=== PATIENT | female | born 1955 | race Caucasian/White ===

== ENCOUNTER 2020-08-19 22:06 | Observation (INO) ==
--- NOTE | 2020-08-19 22:19 | Emergency Department Note ---
Impression & Plan Atypical chest pain ED Provider Note NAME: CRISTY VIRGEN AGE: 64 SEX: F : 1955 ARRIVES VIA: Walk-In INFORMANT: Patient, ED PROVIDER(S): Darrell El MD Chief Complaint: Chest pain HPI: Patient does present with concern for central chest pain that she describes as sharp and nonradiating. The patient has stated it has been intermittent. The patient denies any true exertional symptoms or change with position. The patient is not take anything for it at home. No prior history of heart or lung disease. The patient is a non-smoker. No history of DVT or PE. Patient denies any recent travel surgeries or procedures. The patient denies infectious symptoms including cough fevers or chills. Patient states that she does have family history of heart attack in her father likely in his 70s. Patient denies any recent trauma heavy lifting twisting or turning. ROS: See HPI for pertinent positives and negatives. A total of 10 systems were reviewed and otherwise negative. Past medical history: See below Surgical history: See below Social history: See below Physical Exam: GENERAL: Wearing glasses. Fatigued in appearance. EYE EXAM: Normal conjunctiva. PERRL, no anisocoria and EOM's grossly intact w/o pain. NECK: Supple, no nuchal rigidity, no adenopathy, non-tender. No signs of meningismus. LUNGS: Clear to auscultation. Normal chest wall mechanics. HEART: NSR, no MRG. ABDOMEN: Abdomen soft, non-tender, normo-active bowel sounds, no masses, no rebound or guarding. BACK: No CVA TTP. SKIN: No rashes and no bruising. UPPER EXTREMITIES: Upper extremities are grossly normal. LOWER EXTREMITIES: Grossly normal, no edema. NEURO EXAM: A&O x3, cranial nerves II-XII grossly intact, normal speech, moves all 4 extremities on command w/o issue. Differential diagnoses: Cardiac ischemia, aortic dissection, pulmonary embolism, pneumothorax, pneumonia, pericarditis, myocarditis, esophageal rupture, GERD, cholecystitis, pancreatitis, musculoskeletal, as well as other pathologies. Course: Patient was seen and evaluated the bedside. Full history physical exam was performed. EKG interpreted by me Sinus tachycardia, rate 114, normal intervals, normal axis, slight depressions in the lateral leads. Imaging Studies: See below Cardiac monitoring: An order was placed for continuous cardiac monitoring. The monitor shows a rate of 98 with sinus rhythm. MDM: Patient did present with concern for chest pain. The patient has had intermittent chest pains. Patient did have blood work completed which shows a normal white count H&H and platelet count. The patient's kidney function is un remarkable. D-dimer not elevated. The patient's tachycardia did improve. Patient did have slight ST changes. Troponin undetectable. She does have family history of heart disease. Patient's father had a heart attack she believes in her 70s. The patient's lack of improvement in symptoms with ST changes and and history of heart disease I did order aspirin for the patient. Chest x-ray is clear. I did speak with the on-call hospitalist and the patient was admitted to the medicine service Dr. Cheung. Past Med/Surg History Medical History (Updated 08/20/20 @ 01:26 by Darrell El MD) GERD (gastroesophageal reflux disease) HTN (hypertension) with goal to be determined Hypothyroid Surgical History No pertinent past surgical history Family History (Updated 08/20/20 @ 01:26 by Darrell El MD) Father Coronary heart disease Social History Smoking Status: Never smoker Feels Safe at Home: Yes Allergies Allergies Allergy/AdvReac Type Severity Reaction Status Date / Time erythromycin base Allergy Intermediate RED ITCHY Verified 08/19/20 23:02 RASH Macrolide Antibiotics Allergy Intermediate RED ITCHY Verified 08/19/20 23:02 RASH codeine AdvReac Severe SEVERE Verified 08/19/20 23:02 VOMITING morphine AdvReac Severe SEVERE Verified 08/19/20 23:02 VOMITING Home Meds Home Medications Medication Instructions Recorded Confirmed amitriptyline 25 mg PO HS 08/19/20 08/19/20 atenolol-chlorthalidone 1 tab PO QAM 08/19/20 08/19/20 calcium carbonate [Calcium 600] 600 mg PO QAM 08/19/20 08/19/20 cholecalciferol (vitamin D3) 0 mcg PO DAILY 08/19/20 08/19/20 [Vitamin D3] famotidine 40 mg PO QAM 08/19/20 08/19/20 levothyroxine [Synthroid] 125 mcg PO DAILYBB 08/19/20 08/19/20 milk thistle 0 mg PO QAM 08/19/20 08/19/20 multivitamin 1 tab PO QAM 08/19/20 08/19/20 potassium chloride [Klor-Con M20] 20 meq PO QPM 08/19/20 08/19/20 pravastatin 80 mg PO HS 08/19/20 08/19/20 zolpidem 10 mg PO HS 08/19/20 08/19/20 Results & Data (ED) Vital Signs Vital Signs - 24 hr 08/19/20 22:11 08/19/20 22:34 08/19/20 23:30 Temperature 36.6 C Temperature Source Temporal Artery Scan Pulse Rate 129 H Pulse Rate [Right] 98 H Pulse Rhythm [Right] Regular Pulse Strength [Right] Normal Respiratory Rate 20 16 Respiratory Effort / Characteristics Non-Labored Spontaneous Respiratory Depth Shallow Normal Blood Pressure 161/95 H Blood Pressure [Right Arm] 153/92 H Blood Pressure Mean 117 Blood Pressure Mean [Right Arm] 112 Blood Pressure Position [Right Arm] Lying Pulse Oximetry 97 99 99 Oxygen Delivery Method Room Air Room Air Room Air Sepsis Recent Fever Within 48 Hours No Sepsis New/Unexplained Change in Mental Status No Sepsis Action Taken by Nursing No Action Required 08/20/20 00:50 Temperature Temperature Source Pulse Rate Pulse Rate [Right] 95 H Pulse Rhythm [Right] Regular Pulse Strength [Right] Normal Respiratory Rate 16 Respiratory Effort / Characteristics Non-Labored Spontaneous Respiratory Depth Normal Blood Pressure Blood Pressure [Right Arm] 139/62 Blood Pressure Mean Blood Pressure Mean [Right Arm] 87 Blood Pressure Position [Right Arm] Lying Pulse Oximetry 96 Oxygen Delivery Method Room Air Sepsis Recent Fever Within 48 Hours Sepsis New/Unexplained Change in Mental Status Sepsis Action Taken by Custodial Medications Current Medication List: was personally reviewed by me Laboratory Data Attestation: I reviewed the patient's lab results. Result diagrams: 08/19/20 22:30 08/19/20 22:30 Lab Results 08/19/20 08/19/20 08/19/20 Range/Units 22:30 22:30 22:36 WBC 8.27 (4.8-10.8) K/uL RBC 4.42 (4.2-5.4) M/uL Hgb 14.2 (12.0-16.0) g/dL Hct 40.5 (37-47) % MCV 91.6 (80-100) fL MCH 32.1 (25-34) pg MCHC 35.1 (32-36) g/dL RDW Std Deviation 43.6 (36.4-46.3) fL RDW Coeff of [place] 13.0 (11.5-14.5) % Plt Count 326 (130-400) K/uL MPV 9.0 (7.4-10.4) fL Immature Gran % (Auto) 0.1 % Neut % (Auto) 57.4 % Lymph % (Auto) 31.6 % [place] % (Auto) 7.7 % Eos % (Auto) 2.5 % Baso % (Auto) 0.7 % Neut # (Auto) 4.74 (1.4-6.5) K/uL Lymph # (Auto) 2.61 (1.2-3.4) K/uL [place] # (Auto) 0.64 H (0.11-0.59) K/uL Eos # (Auto) 0.21 (0-0.5) K/uL Baso # (Auto) 0.06 (0-0.2) K/uL Immature Gran # (Auto) 0.01 (0.00-0.02) K/uL PT 10.0 (9.0-12.0) Seconds INR 1.0 (0.9-1.1) APTT 24.2 (21.0-31.0) Seconds PTT Ratio 0.9 D-Dimer 400 (0-500) ug/L FEU Sodium 138 (136-145) mmol/L Potassium 3.3 L (3.5-5.1) mmol/L Chloride 105 (98-107) mmol/L Carbon Dioxide 26 (21-32) mmol/L Anion Gap 7.0 (3-11) BUN 9 (7-18) mg/dl Creatinine 0.67 (0.6-1.2) mg/dl Est Cr Clr Drug Dosing 89.5 ml/min Est GFR ( Amer) 109.2 Est GFR (Non-Af Amer) 94.2 BUN/Creatinine Ratio 12.8 (10-20) Glucose 100 H (70-99) mg/dl Calcium 9.8 (8.5-10.1) mg/dl Total Bilirubin 0.9 (0.2-1) mg/dl AST 34 (15-37) U/L ALT 58 (12-78) U/L Alkaline Phosphatase 78 (45-117) U/L Troponin I < 0.015 (0-0.045) ng/ml Total Protein 8.1 (6.4-8.2) gm/dl Albumin 4.0 (3.4-5.0) gm/dl Globulin 4.1 H (2.5-4.0) gm/dl Albumin/Globulin Ratio 1.0 (0.9-2) Lipase 93 (73-393) U/L COVID-19 Eval Order SARS-CoV-2 (PCR) (Negative) Influenza Type A (PCR) (Neg) Influenza Type B (PCR) (Neg) RSV (RT-PCR) (Neg) 08/20/20 08/20/20 Range/Units 00:30 00:30 WBC (4.8-10.8) K/uL RBC (4.2-5.4) M/uL Hgb (12.0-16.0) g/dL Hct (37-47) % MCV (80-100) fL MCH (25-34) pg MCHC (32-36) g/dL RDW Std Deviation (36.4-46.3) fL RDW Coeff of [place] (11.5-14.5) % Plt Count (130-400) K/uL MPV (7.4-10.4) fL Immature Gran % (Auto) % Neut % (Auto) % Lymph % (Auto) % [place] % (Auto) % Eos % (Auto) % Baso % (Auto) % Neut # (Auto) (1.4-6.5) K/uL Lymph # (Auto) (1.2-3.4) K/uL [place] # (Auto) (0.11-0.59) K/uL Eos # (Auto) (0-0.5) K/uL Baso # (Auto) (0-0.2) K/uL Immature Gran # (Auto) (0.00-0.02) K/uL PT (9.0-12.0) Seconds INR (0.9-1.1) APTT (21.0-31.0) Seconds PTT Ratio D-Dimer (0-500) ug/L FEU Sodium (136-145) mmol/L Potassium (3.5-5.1) mmol/L Chloride (98-107) mmol/L Carbon Dioxide (21-32) mmol/L Anion Gap (3-11) BUN (7-18) mg/dl Creatinine (0.6-1.2) mg/dl Est Cr Clr Drug Dosing ml/min Est GFR ( Amer) Est GFR (Non-Af Amer) BUN/Creatinine Ratio (10-20) Glucose (70-99) mg/dl Calcium (8.5-10.1) mg/dl Total Bilirubin (0.2-1) mg/dl AST (15-37) U/L ALT (12-78) U/L Alkaline Phosphatase (45-117) U/L Troponin I (0-0.045) ng/ml Total Protein (6.4-8.2) gm/dl Albumin (3.4-5.0) gm/dl Globulin (2.5-4.0) gm/dl Albumin/Globulin Ratio (0.9-2) Lipase (73-393) U/L COVID-19 Eval Order CovFluRsv at [facility] SARS-CoV-2 (PCR) NEGATIVE (Negative) Influenza Type A (PCR) Negative (Neg) Influenza Type B (PCR) Negative (Neg) RSV (RT-PCR) Negative (Neg) Administered Medications Discontinued Medications Al Hydrox/Mg Hydrox/Simethicone (Gi Cocktail Ed Use) 1 dose PO ONE ONE Stop: 08/19/20 23:58 Last Admin: 08/20/20 00:01 Dose: 1 dose Documented by: [id number] Aspirin (Aspirin Chew 324 Mg) 324 mg PO NOW STA Stop: 08/20/20 00:25 Last Admin: 08/20/20 00:31 Dose: 324 mg Documented by: [id number] Famotidine (Famotidine 20mg/5ml Iv Push) 20 mg IV ONE STA Stop: 08/19/20 23:58 Last Admin: 08/20/20 00:01 Dose: 20 mg Documented by: [id number] Fentanyl Citrate (Fentanyl Citrate 100 Mcg/2 Ml Vial) 50 mcg IV NOW STA Stop: 08/19/20 22:32 Last Admin: 08/19/20 22:38 Dose: 50 mcg Documented by: [id number] Sodium Chloride (Nss 1000ml) 1,000 mls @ 999 mls/hr IV .Q1H1M STA Stop: 08/19/20 23:30 Last Infusion: 08/19/20 23:49 Dose: 0 mls/hr Documented by: [id number] Admin: 08/19/20 22:37 Dose: 999 mls/hr Documented by: [id number] Sodium Chloride (Nss 1000ml) 500 mls @ 999 mls/hr IV .Q31M ONE Stop: 08/20/20 00:27 Last Infusion: 08/20/20 00:36 Dose: 0 mls/hr Documented by: [id number] Admin: 08/20/20 00:01 Dose: 999 mls/hr Documented by: [id number] Ketorolac Tromethamine (Ketorolac 30 Mg/Ml Vial) 30 mg IV NOW STA Stop: 08/19/20 22:31 Last Admin: 08/19/20 22:38 Dose: 30 mg Documented by: [id number] Nitroglycerin (Nitroglycerin Sl 0.4 Mg/Tab Tab) 0.4 mg SL NOW STA Stop: 08/20/20 00:25 Last Admin: 08/20/20 00:31 Dose: 0.4 mg Documented by: [id number] Ondansetron HCl (Ondansetron Inj 2 Mg/Ml 2 Ml Vial) 4 mg IV NOW STA Stop: 08/19/20 23:58 Last Admin: 08/20/20 00:02 Dose: 4 mg Documented by: [id number] Discharge Plan Visit Data Chief Complaint: Chest Pain Stated Complaint: CHEST PAINS ED Provider: Darrell El Discharge Problem: Atypical chest pain Forms Stand Alone Forms: [facility] Prescriptions Prescriptions: No Action multivitamin Tablet 1 tab PO QAM RF: 0 famotidine 40 mg tablet 40 mg PO QAM RF: 0 atenolol-chlorthalidone 50-25 mg tablet 1 tab PO QAM RF: 0 milk thistle 150 mg Capsule 0 mg PO QAM RF: 0 calcium carbonate [Calcium 600] 600 mg calcium (1,500 mg) Tablet 600 mg PO QAM RF: 0 potassium chloride [Klor-Con M20] 20 mEq tablet,ER particles/crystals 20 meq PO QPM RF: 0 pravastatin 80 mg tablet 80 mg PO HS RF: 0 amitriptyline 25 mg tablet 25 mg PO HS RF: 0 levothyroxine [Synthroid] 125 mcg tablet 125 mcg PO DAILYBB RF: 0 zolpidem 10 mg tablet 10 mg PO HS RF: 0 cholecalciferol (vitamin D3) [Vitamin D3] 25 mcg (1,000 unit) Capsule 0 mcg PO DAILY RF: 0
[2020-08-19] MEDS ORDERED: SODIUM CHLORIDE 0.9% 1000ML 1,000 ML IV STA (22:30)
[2020-08-19] MEDS ORDERED: KETOROLAC 30 MG/ML VIAL IV STA (22:30)
[2020-08-19] MEDS ORDERED: fentaNYL citrate 100 MCG/2 ML VIAL IV STA (22:31)
[2020-08-19 22:46] LABS: Basophils # (auto) 0.06 K/uL (0-0.2); Basophils % (auto) 0.7 %; Eosinophils # (auto) 0.21 K/uL (0-0.5); Eosinophils % (auto) 2.5 %; Hematocrit (blood only) 40.5 % (37-47); Hemoglobin 14.2 g/dL (12.0-16.0); Immature Granulocytes # (auto) 0.01 K/uL (0.00-0.02); Immature Granulocytes % (auto) 0.1 %; Lymphocytes # (auto) 2.61 K/uL (1.2-3.4); Lymphocytes % (auto) 31.6 %; Mean Corpuscular Hemoglobin 32.1 pg (25-34); Mean Corpuscular Hgb Conc 35.1 g/dL (32-36); Mean Corpuscular Volume 91.6 fL (80-100); Monocytes # (auto) 0.64 K/uL (0.11-0.59); Monocytes % (auto) 7.7 %; Neutrophils # (auto) 4.74 K/uL (1.4-6.5); Neutrophils % (auto) 57.4 %; Platelet Count 326 K/uL (130-400); RDW Standard Deviation 43.6 fL (36.4-46.3); Red Blood Count 4.42 M/uL (4.2-5.4); White Blood Count 8.27 K/uL (4.8-10.8)
[2020-08-19 22:55] LABS: Aspartate Aminotransferase 34 U/L (15-37); BUN Creatinine Ratio 12.8 (10-20); Blood Urea Nitrogen 9 mg/dl (7-18); Calcium 9.8 mg/dl (8.5-10.1); Carbon Dioxide 26 mmol/L (21-32); Chloride 105 mmol/L (98-107); Creatinine Clr Calc Pharmacy 89.5 ml/min; Est GFR (African American) 109.2; Est GFR (Non-African American) 94.2; Glucose 100 mg/dl (70-99); Lipase 93 U/L (73-393); Potassium 3.3 mmol/L (3.5-5.1); Sodium 138 mmol/L (136-145)
[2020-08-19 23:00] LABS: Alanine Aminotransferase 58 U/L (12-78); Alkaline Phosphatase 78 U/L (45-117); Bilirubin,Total 0.9 mg/dl (0.2-1); Globulin 4.1 gm/dl (2.5-4.0); Total Protein 8.1 gm/dl (6.4-8.2); Troponin I < 0.015 ng/ml (0-0.045)
[2020-08-19 23:52] LABS: D Dimer 400 ug/L FEU (0-500); Partial Thromboplastin Ratio 0.9; Partial Thromboplastin Time 24.2 Seconds (21.0-31.0)
[2020-08-19] MEDS ORDERED: SODIUM CHLORIDE 0.9% 1000ML 500 ML IV ONE (23:57)
[2020-08-19] MEDS ORDERED: ONDANSETRON INJ 2 MG/ML 2 ML VIAL IV STA (23:57)
[2020-08-19] MEDS ORDERED: FAMOTIDINE 20MG/5ML IV PUSH IV STA (23:57)
[2020-08-19] MEDS ORDERED: GI COCKTAIL ED USE PO ONE (23:57)
[2020-08-20] MEDS ORDERED: NITROGLYCERIN SL 0.4 MG/TAB TAB SL STA (00:24)
[2020-08-20] MEDS ORDERED: ASPIRIN CHEW 324 MG PO STA (00:24)
[2020-08-20 01:19] LABS: Influenza A virus by PCR Negative (Neg); Influenza B virus by PCR Negative (Neg); RSV by PCR Negative (Neg); SARS CoV2 RNA(COVID-19) InHosp NEGATIVE (Negative)
[2020-08-20] MEDS ORDERED: POTASSIUM CHLORIDE CRTAB 20 MEQ TABCR PO STA ×2 (04:42→13:08)
[2020-08-20] MEDS ORDERED: ONDANSETRON INJ 2 MG/ML 2 ML VIAL IV PRN (04:42)
[2020-08-20] MEDS ORDERED: NITROGLYCERIN SL 0.4 MG/TAB TAB SL PRN (04:42)
[2020-08-20] MEDS ORDERED: ACETAMINOPHEN 325 MG TAB PO PRN (04:42)
--- NOTE | 2020-08-20 05:09 | History and Physical Report ---
DATE OF ADMISSION: 08/20/2020 CHIEF COMPLAINT: Chest pain. HISTORY OF PRESENT ILLNESS: This is a 64-year-old female with past medical history significant for hyperlipidemia, hypothyroidism, prediabetes, hypertension, SCHRADER, diverticulosis of colon, irritable bowel syndrome, anemia, family history of dementia, history of colon polyps who lives with her and grandkids comes with chest pain. The patient says she is having chest pain in the middle of the chest last 2 days on and off, burning and sharp kind of pain about 4/10 in severity, no radiation, also some dizziness. No nausea. When the pain is severe, she gets short of breath. No cough, no fever, no chills, has some headache, no blurred vision, no earache, no runny nose, no sore throat. Appetite is down last few days. No dysphagia, no abdominal pain. Normal bowel and bladder movements. Pain is not associated with any activity. The patient received fentanyl in the ER and nitroglycerin and Toradol and that helped with the pain. Currently resting comfortably and hemodynamically stable. ALLERGIES: ERYTHROMYCIN BASE, MACROLIDE ANTIBIOTICS, CODEINE, MORPHINE. PAST MEDICAL HISTORY: As mentioned above. PAST SURGICAL HISTORY: Colonoscopy with biopsy, ovarian cyst drained, knee arthroscopy, vaginal hysterectomy, appendectomy. MEDICATIONS: The patient is on amitriptyline 25 mg p.o. at bedtime, atenolol/chlorthalidone 50/25 mg p.o. daily, calcium carbonate 600 mg p.o. a.m., vitamin D, famotidine 40 mg p.o. a.m., levothyroxine 125 mcg p.o. daily, milk thistle daily, multivitamin daily, potassium chloride 20 mEq p.o. daily, pravastatin 80 mg p.o. at bedtime, zolpidem 10 mg p.o. at bedtime. FAMILY HISTORY: Significant for brother has asthma. Mother has hyperlipidemia, hypertension, diabetes. Daughter has migraine. SOCIAL HISTORY: . No smoking, alcohol rarely. No drug use. REVIEW OF SYMPTOMS: As per HPI. Rest of the review of systems negative. PHYSICAL EXAMINATION: GENERAL: The patient is of moderate build, not in acute distress. VITAL SIGNS: Temperature 36.6, pulse 81, respiratory rate 16, blood pressure 137/87, oxygen 98% on room air. HEENT: Pupils equal, round, reactive to light. Oral mucosa moist. NECK: No JVD, no neck masses. CARDIOVASCULAR: S1, S2 heard, regular rate and rhythm, no murmur, no gallop. RESPIRATORY SYSTEM: Normal AP diameter. No accessory muscle use. No wheezing, no crackles. ABDOMEN: Soft, bowel sounds present, nontender. No distention. CENTRAL NERVOUS SYSTEM: Cranial nerves II-XII grossly intact, nonfocal. EXTREMITIES: No edema, no erythema. LABORATORY DATA: WBC 8.8, hemoglobin 14.2, hematocrit 40.5, platelets 326. PT 10, INR 1, APTT 24.2. D-dimer 400. Sodium 138, potassium 3.3, chloride 105, bicarbonate 26, BUN 9, creatinine 0.6, serum glucose 100, calcium 9.8, total bilirubin 0.9, AST 34, ALT 58, alkaline phosphatase 70. Troponin I less than 0.015. Lipase 96. SARS-CoV-2 PCR negative. Influenza A and B PCR negative, RSV PCR negative. IMAGING: Chest x-ray, no acute findings. EKG: Sinus tachycardia, rate of 114. Left ventricular hypertrophy with repolarization abnormality, nonspecific T-wave abnormalities seen. ASSESSMENT AND PLAN: This is a 64-year-old female who presents with chest pain. 1. Chest pain, rule out acute coronary syndrome. EKG, no acute findings. Troponins negative, follow serial enzymes, echocardiogram. We will keep her n.p.o. Consult cardiology in the a.m. 2. Hypokalemia. We will replace. 3. History of hypertension. Continue atenolol/chlorthalidone with potassium supplements. We will monitor the blood pressure. 4. Hyperlipidemia. Continue statin. 5. Hypothyroidism. Continue Synthroid. 6. Gastroesophageal reflux disease. Continue famotidine. 7. Prediabetes. We will follow HbA1c levels, currently n.p.o. 7. Deep venous thrombosis prophylaxis, sequential compression devices. DISPOSITION: Observe in med tele. Expect to discharge home and follow with family doctor.
[2020-08-20 05:39] LABS: Basophils # (auto) 0.06 K/uL (0-0.2); Basophils % (auto) 0.9 %; Eosinophils # (auto) 0.37 K/uL (0-0.5); Eosinophils % (auto) 5.7 %; Hematocrit (blood only) 36.9 % (37-47); Hemoglobin 12.6 g/dL (12.0-16.0); Lymphocytes # (auto) 2.37 K/uL (1.2-3.4); Lymphocytes % (auto) 36.2 %; Mean Corpuscular Hemoglobin 31.9 pg (25-34); Mean Corpuscular Hgb Conc 34.1 g/dL (32-36); Mean Corpuscular Volume 93.4 fL (80-100); Mean Platelet Volume 8.8 fL (7.4-10.4); Monocytes # (auto) 0.62 K/uL (0.11-0.59); Monocytes % (auto) 9.5 %; Neutrophils # (auto) 3.12 K/uL (1.4-6.5); Neutrophils % (auto) 47.7 %; Platelet Count 276 K/uL (130-400); RDW Standard Deviation 44.4 fL (36.4-46.3); Red Blood Count 3.95 M/uL (4.2-5.4); White Blood Count 6.54 K/uL (4.8-10.8)
[2020-08-20 06:06] LABS: BUN Creatinine Ratio 15.9 (10-20); Blood Urea Nitrogen 9 mg/dl (7-18); Calcium 8.3 mg/dl (8.5-10.1); Carbon Dioxide 27 mmol/L (21-32); Chloride 112 mmol/L (98-107); Creatinine Clr Calc Pharmacy 100.9 ml/min; Est GFR (African American) 113.9; Est GFR (Non-African American) 98.2; Glucose 86 mg/dl (70-99); Magnesium 2.1 mg/dl (1.8-2.4); Potassium 3.5 mmol/L (3.5-5.1); Sodium 143 mmol/L (136-145)
[2020-08-20 06:07] LABS: Troponin I < 0.015 ng/ml (0-0.045)
[2020-08-20] MEDS ORDERED: LEVOTHYROXINE SODIUM 125 MCG TABLET PO SCH (06:30)
--- NOTE | 2020-08-20 07:02 | XRay Report ---
XR chest 1V portable CLINICAL HISTORY: Atypical chest pain COMPARISON STUDY: No previous studies for comparison. FINDINGS: The cardiac and mediastinal contours are normal. There is no evidence of focal pulmonary co nsolidation. There is no evidence of failure. No pleural effusions are visualized.[ IMPRESSION: No active disease in the chest. ACT 112: Negative or not required by law. Electronically signed by: Sagar Norman M.D. 08/20/2020 7:00 AM
[2020-08-20 07:28] LABS: Estimated Average Glucose 114 mg/dl; Hemoglobin A1C 5.6 % (4.5-5.6)
[2020-08-20 08:49] LABS: Chol HDL Ratio 2; Cholesterol 156 mg/dl (0-200); HDL Cholesterol 65 mg/dl; LDL Cholesterol Calculated 75 mg/dl; Triglycerides 82 mg/dl (0-150); VLDL Cholesterol 16 mg/dl
[2020-08-20] MEDS ORDERED: CALCIUM 600MG + VIT D 400 IU TAB PO SCH (09:00)
[2020-08-20] MEDS ORDERED: CHLORTHALIDONE 25 MG TAB PO SCH (09:00)
[2020-08-20] MEDS ORDERED: ATENOLOL 50 MG TABLET PO SCH (09:00)
[2020-08-20] MEDS ORDERED: MILK THISTLE 150 MG PO SCH (09:00)
[2020-08-20] MEDS ORDERED: FAMOTIDINE 40 MG TABLET PO SCH (09:00)
[2020-08-20] MEDS ORDERED: MULTIVITAMIN TAB PO SCH (09:00)
[2020-08-20] MEDS ORDERED: CHOLECALCIFEROL 1,000 UNITS 25 MCG TAB PO SCH ×2 (09:00)
--- NOTE | 2020-08-20 09:58 | Cardiology Consultation ---
Date of Consultation August 20, 2020 Assessment & Plan (1) Atypical chest pain: 64-year-old female presents with intermittent chest discomfort which is both pleuritic and somewhat positional. D-dimer negative. No evidence of acute coronary syndrome. Preliminary review of bedside 2D transthoracic echocardiogram without evidence of pericardial effusion. I have ordered a CRP due to the pleuritic nature of her discomfort regarding an underlying inflammatory process. She is currently pain-free. Recommend exercise stress echo for further stratification. (2) HTN (hypertension): Blood pressure controlled. Continue home medications. (3) Dyslipidemia: Continue statin therapy. (4) Hypokalemia: Secondary to calcium sparing diuretic therapy. Replace as indicated. History of Present Illness Reason for Consultation: chest pain Requesting Physician: Dr. Cheung Attending Physician: Prashanth Bach MD History of Present Illness 64-year-old female presented emergency department with chest discomfort. History of dyslipidemia, hypertension, Goldberg, hypothyroidism and irritable bowel syndrome. Notes significant stress in her home life involving her granddaughter whom she cares for. Patient developed chest discomfort on Tuesday. Described a sharp discomfort as well as intermittent tightness at rest. Discomfort somewhat positional and exacerbated by turning to her right. Symptoms generally last 15 minutes in duration. No associated shortness of breath. When she experienced sharp discomfort, the pain "took my breath away". No orthopnea, PND, or lower extremity edema. Denies palpitations, lightheadedness, dizziness, syncope, or near syncope. Discomfort intermittent over the past 48 hours. Currently pain- free. In the ER her ECG demonstrates sinus tachycardia with nonspecific ST abnormality. Cardiac enzymes are undetectable x3 sets. Telemetry reveals sinus rhythm with occasional premature ventricular complexes. Preliminary review of bedside 2D transthoracic echocardiogram reveals normal wall motion without pericardial effusion. No significant valvular pathology. Allergies Allergy/AdvReac Type Severity Reaction Status Date / Time erythromycin base Allergy Intermediate RED ITCHY Verified 08/19/20 23:02 RASH Macrolide Antibiotics Allergy Intermediate RED ITCHY Verified 08/19/20 23:02 RASH codeine AdvReac Severe SEVERE Verified 08/19/20 23:02 VOMITING morphine AdvReac Severe SEVERE Verified 08/19/20 23:02 VOMITING Home Medications Medication Instructions Recorded Confirmed Type amitriptyline 25 mg PO HS 08/19/20 08/19/20 History atenolol-chlorthalidone 1 tab PO QAM 08/19/20 08/19/20 History calcium carbonate [Calcium 600] 600 mg PO QAM 08/19/20 08/19/20 History cholecalciferol (vitamin D3) 0 mcg PO DAILY 08/19/20 08/19/20 History [Vitamin D3] famotidine 40 mg PO QAM 08/19/20 08/19/20 History levothyroxine [Synthroid] 125 mcg PO DAILYBB 08/19/20 08/19/20 History milk thistle 0 mg PO QAM 08/19/20 08/19/20 History multivitamin 1 tab PO QAM 08/19/20 08/19/20 History potassium chloride [Klor-Con M20] 20 meq PO QPM 08/19/20 08/19/20 History pravastatin 80 mg PO HS 08/19/20 08/19/20 History zolpidem 10 mg PO HS 08/19/20 08/19/20 History Patient History Medical History GERD (gastroesophageal reflux disease) HTN (hypertension) with goal to be determined Hypothyroid Surgical History No pertinent past surgical history Family History Father Coronary heart disease Social History Smoking Status: Never smoker Hx Alcohol Use: Yes Alcohol type: other Hx Substance Use: No Preferred Language: [place] Communication Ability: Effective Beliefs That Will Affect Care: None Current Living Situation: Spouse Other Information That Helps Us Care for You: No Feels Safe at Home: Yes Safety Concerns: Feels Safe At This Time Assistive Devices: None Review of Systems Review of Systems: All systems reviewed & are unremarkable except as noted in Subjective Physical Exam Constitutional: well developed and well nourished; no acute distress Respiratory: normal respiratory effort; no respiratory distress, no labored breathing and no retractions Auscultation: lungs clear to auscultation bilaterally; breath sounds present, no diminished lung sounds, no crackles, no rales, no rhonchi and no wheezes Cardiovascular: Rate/Rhythm: regular rate and regular rhythm Heart Sounds: normal S1 and normal S2; no gallop, no murmur and no cardiac rub Palpation: normal PMI Vessels: radial pulses present; no JVD and no carotid bruit Extremities: no edema Gastrointestinal (Abdomen): Inspection/Auscultation: abdomen normal to inspection and normal bowel sounds; abdomen not distended Percussion/Palpation: abdomen soft; abdomen nontender, no guarding and abdomen not rigid Neurologic: moves all extremities; no focal motor deficits Motor/Sensory: no tremor Psychiatric: Orientation: alert and oriented x 3 Affect: + anxious affect Results & Data ([facility]) Vital Signs (Past 12 Hours) Vital Signs Temp Pulse Pulse Resp BP BP Pulse Ox 08/20/20 08:23 36.6 C 77 18 111/71 96 08/20/20 07:42 70 08/20/20 06:05 73 08/20/20 04:44 36.4 C L 78 18 147/90 H 96 08/20/20 03:31 90 16 136/82 98 08/20/20 02:23 81 16 137/87 98 08/20/20 00:50 95 H 16 139/62 96 08/19/20 23:30 98 H 16 153/92 H 99 08/19/20 22:34 99 08/19/20 22:11 36.6 C 129 H 20 161/95 H 97 (1) HTN (hypertension) Hypertension type: essential hypertension Qualified Code(s): I10 - Essential (primary) hypertension
[2020-08-20 10:16] LABS: C Reactive Protein 0.55 mg/dl (0-0.29); Troponin I < 0.015 ng/ml (0-0.045)
--- NOTE | 2020-08-20 13:09 | Hospitalist Progress Note ---
Date of Service August 20, 2020 Assessment & Plan (1) Atypical chest pain: Presented with chest pain off and on without exertion and without any significant associated symptoms No significant family history of heart disease and has not had any chest pain before Initial troponins and EKG are unremarkable Appreciate cardiology input and recommendation Status post negative exercise stress echocardiograph Likely to be discharged this afternoon (2) HTN (hypertension): Controlled on medication (3) Dyslipidemia: Lipids profile are unremarkable Continue statin (4) GERD (gastroesophageal reflux disease): Continue H1 [place] (5) Hypothyroid: Replacement (6) Hypokalemia: Replaced and corrected Will be discharged this afternoon Admission and Anticipated Discharge Date Admission Date: August 20, 2020 Subjective 08/20/2020 The patient was seen and examined in medical telemetry unit She is very anxious and is admitted with chest pain off and on for the last 3 days without any other associated symptoms She is a status post negative stress echo Denies any chest pain since admission Review of Systems Review of Systems: All systems reviewed and are unremarkable except as noted below Cardiovascular: no chest pain, no palpitations and no edema Psychiatric: + anxiety Physical Exam Physical Exam: Lying in bed comfortably Constitutional: well developed, well nourished and + obese; not ill appearing Eyes: PERRL, conjunctivae normal, anicteric sclerae ENMT: external ear and nose normal, oropharynx normal Neck: trachea midline, no thyromegaly Respiratory: no respiratory distress Auscultation: lungs clear to auscultation bilaterally Cardiovascular: Rate/Rhythm: regular rate and regular rhythm Heart Sounds: no murmur Extremities: no edema Gastrointestinal (Abdomen): Inspection/Auscultation: normal bowel sounds; abdomen not distended Percussion/Palpation: abdomen soft; abdomen nontender Musculoskeletal: No acute arthritis in any joint Neurologic: Alert, awake and oriented x3. No focal sensory and motor deficit appreciated Psychiatric: A+Ox3, euthymic affect Mood: + anxious mood Lymphatic: no cervical or axillary lymphadenopathy Results & Data Results & Data ([facility]) Vital Signs (Past 12 Hours) Vital Signs Temp Pulse Pulse Resp BP Pulse Ox 08/20/20 08:23 36.6 C 77 18 111/71 96 08/20/20 07:42 70 08/20/20 06:05 73 08/20/20 04:44 36.4 C L 78 18 147/90 H 96 08/20/20 03:31 90 16 136/82 98 08/20/20 02:23 81 16 137/87 98 Laboratory Results Short CBC 08/19/20 08/20/20 Range/Units 22:30 05:28 WBC 8.27 6.54 (4.8-10.8) K/uL Hgb 14.2 12.6 (12.0-16.0) g/dL Hct 40.5 36.9 L (37-47) % Plt Count 326 276 (130-400) K/uL BMP 08/19/20 08/20/20 22:30 05:28 Sodium 138 143 Potassium 3.3 L 3.5 Chloride 105 112 H Carbon Dioxide 26 27 BUN 9 9 Creatinine 0.67 0.59 L Glucose 100 H 86 Calcium 9.8 8.3 L D Cardiac Enzymes 08/19/20 08/20/20 08/20/20 Range/Units 22:30 05:28 09:36 Troponin I < 0.015 < 0.015 < 0.015 (0-0.045) ng/ml Liver Function 08/19/20 Range/Units 22:30 Total Bilirubin 0.9 (0.2-1) mg/dl AST 34 (15-37) U/L ALT 58 (12-78) U/L Alkaline Phosphatase 78 (45-117) U/L Albumin 4.0 (3.4-5.0) gm/dl Medications Administered Current Inpatient Medications Acetaminophen (Acetaminophen 325 Mg Tab) 650 mg PO Q4H PRN PRN Reason: Pain or Fever Stop: 09/19/20 04:41 Amitriptyline HCl (Amitriptyline Hcl 25 Mg Tab) 25 mg PO [facility] Stop: 09/19/20 20:59 Atenolol (A[facility]ol 50 Mg Tablet) [facility] [place] Stop: 09/19/20 08:59 Last Admin: 08/20/20 08:26 Dose: 50 mg Documented by: Chlorthalidone (Chlorthalidone 25 Mg Tab) [facility] [place] Stop: 09/19/20 08:59 Last Admin: 08/20/20 08:25 Dose: 25 mg Documented by: Famotidine (Famotidine 40 Mg Tablet) [facility] [place] Stop: 09/19/20 08:59 Last Admin: 08/20/20 08:25 Dose: 40 mg Documented by: Levothyroxine Sodium (Levothyroxine Sodium 125 Mcg Tablet) 125 mcg PO DAILYBB [facility] Stop: 09/19/20 06:29 Last Admin: 08/20/20 06:02 Dose: 125 mcg Documented by: Multivitamins (Multivitamin Tab) 1 tab PO QAM [facility] Stop: 09/19/20 08:59 Last Admin: 08/20/20 08:25 Dose: 1 tab Documented by: Multivitamins/Minerals (Calcium 600mg + Vit D 400 Iu Tab) 1 tab PO QAM [facility] Stop: 09/19/20 08:59 Last Admin: 08/20/20 08:25 Dose: 1 tab Documented by: Nitroglycerin (Nitroglycerin Sl 0.4 Mg/Tab Tab) 0.4 mg SL UD PRN PRN Reason: Chest Pain Stop: 09/19/20 04:41 Ondansetron HCl (Ondansetron Inj 2 Mg/Ml 2 Ml Vial) 4 mg IV Q6H PRN PRN Reason: Nausea Stop: 09/19/20 04:41 Potassium Chloride (Potassium Chloride Crtab 20 Meq Tabcr) 20 meq PO QPM [facility] Stop: 09/19/20 20:59 Pravastatin Sodium (Pravastatin Sod 40 Mg Tab) 80 mg PO HS [facility] Stop: 09/19/20 20:59 Vitamin D (Cholecalciferol 1,000 Units 25 Mcg Tab) 1,000 units PO DAILY [facility] Stop: 09/19/20 08:59 Last Admin: 08/20/20 08:25 Dose: 1,000 units Documented by: Zolpidem Tartrate (Zolpidem Tartrate 10 Mg Tab) 10 mg PO HS [facility] Stop: 09/19/20 20:59 (1) HTN (hypertension) Hypertension type: essential hypertension Qualified Code(s): I10 - Essential (primary) hypertension
[2020-08-20] MEDS ORDERED: POTASSIUM CHLORIDE CRTAB 20 MEQ TABCR PO SCH (21:00)
[2020-08-20] MEDS ORDERED: ZOLPIDEM TARTRATE 10 MG TAB PO SCH (21:00)
[2020-08-20] MEDS ORDERED: PRAVASTATIN SOD 40 MG TAB PO SCH (21:00)
[2020-08-20] MEDS ORDERED: AMITRIPTYLINE HCL 25 MG TAB PO SCH (21:00)
--- NOTE | 2020-08-21 05:49 | Electrocardiogram Report ---
Test Reason : Blood Pressure : / mmHG Vent. Rate : 114 BPM Atrial Rate : 114 BPM P-R Int : 156 ms QRS Dur : 096 ms QT Int : 310 ms P-R-T Axes : 051 -17 115 degrees QTc Int : 427 ms Sinus tachycardia Left ventricular hypertrophy with repolarization abnormality Abnormal ECG When compared with ECG of 29-AUG-2010 11:10, Vent. rate has increased BY 52 BPM Nonspecific T wave abnormality, worse in Inferior leads Nonspecific T wave abnormality now evident in Anterolateral leads Confirmed by Harpreet Contreras ([id number]) on 08/21/2020 5:49:15 AM Referred By: REFERRED SELF Confirmed By:Harpreet Contreras
--- NOTE | 2020-08-21 08:58 | Discharge Summary ---
Date of Service August 21, 2020 Admission HPI Per Admitting Provider DICTATED BY: El Cheung MD DATE OF ADMISSION: 08/20/2020 CHIEF COMPLAINT: Chest pain. HISTORY OF PRESENT ILLNESS: This is a 64-year-old female with past medical history significant for hyperlipidemia, hypothyroidism, prediabetes, hypertension, SCHRADER, diverticulosis of colon, irritable bowel syndrome, anemia, family history of dementia, history of colon polyps who lives with her and grandkids comes with chest pain. The patient says she is having chest pain in the middle of the chest last 2 days on and off, burning and sharp kind of pain about 4/10 in severity, no radiation, also some dizziness. No nausea. When the pain is severe, she gets short of breath. No cough, no fever, no chills, has some headache, no blurred vision, no earache, no runny nose, no sore throat. Appetite is down last few days. No dysphagia, no abdominal pain. Normal bowel and bladder movements. Pain is not associated with any activity. The patient received fentanyl in the ER and nitroglycerin and Toradol and that helped with the pain. Currently resting comfortably and hemodynamically stable. Admission Exam Per Admitting Provider GENERAL: The patient is of moderate build, not in acute distress. VITAL SIGNS: Temperature 36.6, pulse 81, respiratory rate 16, blood pressure 137/87, oxygen 98% on room air. HEENT: Pupils equal, round, reactive to light. Oral mucosa moist. NECK: No JVD, no neck masses. CARDIOVASCULAR: S1, S2 heard, regular rate and rhythm, no murmur, no gallop. RESPIRATORY SYSTEM: Normal AP diameter. No accessory muscle use. No wheezing, no crackles. ABDOMEN: Soft, bowel sounds present, nontender. No distention. CENTRAL NERVOUS SYSTEM: Cranial nerves II-XII grossly intact, nonfocal. EXTREMITIES: No edema, no erythema. Principal Diagnosis Atypical chest pain with negative exercise stress echo, hypertension. Hyperlipidemia, hypothyroidism Discharge Exam Constitutional well developed, well nourished and + obese; not ill appearing Eyes PERRL, conjunctivae normal, anicteric sclerae ENMT external ear and nose normal, oropharynx normal Neck trachea midline, no thyromegaly Respiratory no respiratory distress Auscultation: lungs clear to auscultation bilaterally Cardiovascular Rate/Rhythm: regular rate and regular rhythm Heart Sounds: no murmur Extremities: no edema Gastrointestinal (Abdomen) Inspection/Auscultation: normal bowel sounds; abdomen not distended Percussion/Palpation: abdomen soft; abdomen nontender Psychiatric A+Ox3, euthymic affect Mood: + anxious mood Lymphatic no cervical or axillary lymphadenopathy Discharge Data Allergies Allergy/AdvReac Type Severity Reaction Status Date / Time erythromycin base Allergy Intermediate RED ITCHY Verified 08/19/20 23:02 RASH Macrolide Antibiotics Allergy Intermediate RED ITCHY Verified 08/19/20 23:02 RASH codeine AdvReac Severe SEVERE Verified 08/19/20 23:02 VOMITING morphine AdvReac Severe SEVERE Verified 08/19/20 23:02 VOMITING Consultations 08/20/20 00:27 ED Decision to Admit Stat 08/20/20 08:00 Consult Cardiology Routine Hospital Course (1) Atypical chest pain: Presented with chest pain off and on without exertion and without any significant associated symptoms No significant family history of heart disease and has not had any chest pain before Initial troponins and EKG are unremarkable Appreciate cardiology input and recommendation Status post negative exercise stress echocardiograph Likely to be discharged this afternoon (2) HTN (hypertension): Controlled on medication (3) Dyslipidemia: Lipids profile are unremarkable Continue statin (4) GERD (gastroesophageal reflux disease): Continue H1 [place] (5) Hypothyroid: Replacement (6) Hypokalemia: Replaced and corrected Will be discharged this afternoon Total Time Total Time Spent Total Time Spent (In Minutes): 35 minutes Total Time Includes: Examination of the Patient, Discharge Planning, Medication Reconciliation and Communication With Other Providers Discharge Plan Discharge Items Patient Disposition: Home - Self-Care Reason For Visit: CHEST PAIN Discharge Diagnosis: Atypical chest pain with negative exercise stress echo, hypertension. Hyperlipidemia, hypothyroidism Condition on Discharge: Good Activity: Resume your previous activity Non-emergency contact: Primary Care Provider Call non-emergency contact if: you have any medication questions and your symptoms worsen Follow-up/Referrals: Deana Montejo DO [Primary Care Provider] - (Date & Time 08/25/2020 11:20 AM Provider Deana Montejo DO Department [facility] ) Diet: Heart Healthy Addtl Attending Provider Instructions: Continue with your current medications Please keep your follow-up appointments with your primary care provider Pending Studies at Discharge: No Stand-Alone Forms: My [facility], Smoking Cessation Medications and DC Order Prescriptions: Continued multivitamin Tablet 1 tab PO QAM RF: 0 famotidine 40 mg tablet 40 mg PO QAM RF: 0 atenolol-chlorthalidone 50-25 mg tablet 1 tab PO QAM RF: 0 milk thistle 150 mg Capsule 0 mg PO QAM RF: 0 calcium carbonate [Calcium 600] 600 mg calcium (1,500 mg) Tablet 600 mg PO QAM RF: 0 potassium chloride [Klor-Con M20] 20 mEq tablet,ER particles/crystals 20 meq PO QPM RF: 0 pravastatin 80 mg tablet 80 mg PO HS RF: 0 amitriptyline 25 mg tablet 25 mg PO HS RF: 0 levothyroxine [Synthroid] 125 mcg tablet 125 mcg PO DAILYBB RF: 0 zolpidem 10 mg tablet 10 mg PO HS RF: 0 cholecalciferol (vitamin D3) [Vitamin D3] 25 mcg (1,000 unit) Capsule 0 mcg PO DAILY RF: 0 Discharge Orders: Discharge Order (Routine); Ordered 08/20/20 Ordered By: Prashanth Bach Admission Data Admit Date/Time: 08/20/20 02:35 Attending Provider: Prashanth Bach Admit Provider: El Cheung Primary Care Provider: Deana Montejo Other Providers: El Cheung ; Rj Nelson ; Trino Salmeron ; Baldemar Nowak ; Anshul Harris ; Jaquan Galan ; Romie Green ; Belem Asher ; Cindy Moreno ; Eileen Scott ; Anam Wu Other Interventions: Discharge Summary Assessment (RN) Last Done: 08/20/20 15:22
== END 2020-08-20 15:59 | disposition home or self-care (01) ==
LOC: 2N 22:06 → ED 22:06 → 2N 08-20 04:08